=== PATIENT | male | born 1990 | race Two or more races ===

== ENCOUNTER 2018-10-20 16:37 | Emergency (ER) | payer MEDICAID ==
[~2018-10-20] VITALS: Ht 167.6 cm; Wt 75.0 kg
[2018-10-20 16:59] VITALS: BP 128/86
== END 2018-10-20 17:20 | disposition home or self-care (01) ==
LOC: ER 16:38
DX: F20.9 Schizophrenia, unspecified (principal); Z59.0 Homelessness
CPT/HCPCS: 99281